=== PATIENT | male | born 1970 | race Caucasian/White ===

== ENCOUNTER 2016-11-12 09:24 | Emergency (ER) | payer OTHER ==
[~2016-11-12] VITALS: Ht 167.6 cm; Wt 90.7 kg
--- NOTE | ~2016-11-12 | EKG ---
[facility] [address] [employer] [place] [address] ELECTROCARDIOGRAM REPORT Name: CLARISANADEEM Room #: DEP POLLY Alvarez#: [id number] Admission: 11/12/16 Attend Phys: Discharge: 11/12/16 Date of : 66 Report #: [id number] THIS REPORT FOR: //name// [facility] ED Test Date: 2016-11-12 Test Time: 09:25:35 Pat Name: JENNIFER MCKENNA Department: Room: Gender: M Reconcilement Clerk: NEPTALI : 1970 Requested By: Dianne Olmedo Order Number: [id number] MD: Measurements Intervals [place] Rate: 73 P: 22 ND: 140 QRS: 64 QRSD: 101 T: 13 QT: 363 QTc: 400 Interpretive Statements Sinus rhythm Baseline wander in lead(s) V3 No previous ECG available for comparison [email or web address] By: 4 4 Tammy Munoz MD /EPI
[~2016-11-12 09:24] MED LIST: PERCOCET 5-3251 EACH PO; SPIRIVA
[2016-11-12] MEDS ORDERED: TRAMADOL 50 MG50 MG PO (09:47)
[2016-11-12] MEDS ORDERED: CLONAZEPAM 1 MG1 M1 PO (09:48)
[2016-11-12] MEDS ORDERED: HYDROCODONE-APA1 TA1 PO (09:48)
[2016-11-12] MEDS ORDERED: CYMBALTA60 MG PO (09:48)
[2016-11-12 10:13] LABS: ABSOLUTE NEUTROPHILS 3.2 thou/uL (1.4-8.2); BASOPHILS 0.6 % (0.0-2.0); EOSINOPHILS 3.5 % (0.0-3.0); HEMATOCRIT 42.8 % (42.0-52.0); HEMOGLOBIN 14.4 gm/dL (14.0-18.0); MCH 29.2 pg (26.0-34.0); MCHC 33.6 g/dL (28.0-37.0); MONOCYTES 6.1 % (1.0-8.0); PLATELET COUNT 270 thou/uL (150-400); POLYS 56.8 % (36.0-66.0); RBC 4.92 mil/uL (4.50-6.00); RDW 13.9 % (10.5-14.5); WBC 5.6 thou/uL (4.0-11.0)
[2016-11-12 10:16] LABS: MANUAL DIFF NO
[2016-11-12 10:34] LABS: ANION GAP 8 mmol/L (7-16); BUN 16 mg/dL (7-18); CALCIUM 9.1 mg/dL (8.5-10.1); CHLORIDE 103 mmol/L (98-107); CO2 27 mmol/L (21-32); CREATININE 0.9 mg/dL (0.7-1.3); GLUCOSE 93 mg/dL (74-106); NT-PRO BRAIN NAT PEPTIDE 34 pg/mL (<300); POTASSIUM 4.4 mmol/L (3.5-5.1); SODIUM 138 mmol/L (136-145); TROPONIN-I < 0.04 ng/mL (<0.04-0.07)
[2016-11-12] MEDS ORDERED: NAPROSYN500 MG PO (13:54)
[2016-11-12 13:56] VITALS: BP 116/86
== END 2016-11-12 13:58 | disposition home or self-care (01) ==
LOC: ER 09:24
PROVIDERS: Emergency Medicine
DX: R07.89 Other chest pain (principal); J44.9 Chronic obstructive pulmonary disease, unspecified